=== PATIENT | male | born 1985 | race Caucasian/White ===

== ENCOUNTER 2016-04-24 08:34 | Emergency (ER) ==
--- NOTE | 2016-04-24 09:15 | PROVIDER DOCUMENTATION ---
[id number] Abuse/Overdose - General Chief Complaint: Req. Detox Stated Complaint: GENERAL Time Seen by Provider: 04/24/16 09:09 Source: patient Allergies/Adverse Reactions: Allergies Allergy/AdvReac Type Severity Reaction Status Date / Time No Known Allergies Allergy Verified 03/30/12 12:10 Home Medications: Buprenorphine S.l. [Subutex] 8 mg SL BID 04/24/16 - History of Present Illness-Drug/Alcohol Nature of Presenting Problem: Pt is 30 y/o M presents to the ED with request of detox for drug abuse. Pt denies F. Pt states last drug use was today just PATTERN CHANGER. Pt denies SI or HI. Pt states he does hear his dad voice in his head telling his to get clean. Pt states IV drug use This episode of drinking or use began:: just prior to arrival Severity: reports: mild Situational problems related to:: reports: significant other, work Psychiatric Complaints: reports: hallucinating (voices of dad). denies: angry, agitated, altered mental status, anxiety, confused, depressed, frustrated, hostile, homicidal thoughts, impaired concentration, ingestion, injury, insomnia , irritability, paranoid, , rapid pulse, restlessness, suicidal ideation , tremor Associated Symptoms: reports: denies symptoms Any injuries associated with this episode of intoxication?: No Similar Symptoms Previously?: Yes Recently seen or treated by another doctor?: No Review of Systems - Adult - REVIEW OF SYSTEMS - ADULT Constitutional: denies: chills, fever Eyes: denies: blurred vision, double vision Ears, Nose, Mouth & Throat: denies: ear pain, nose pain, throat pain Cardiovascular: reports: irregular heart rate (tachy). denies: chest pain, heart murmur Respiratory: denies: cough, shortness of breath, wheezing Gastrointestinal: denies: abdominal pain, diarrhea, nausea, vomiting Genitourinary: denies: dysuria, hematuria Musculoskeletal: denies: bone pain, joint pain, neck pain Integumentary: denies: hives, itching Neurological: denies: dizziness/vertigo, headache/migraines Psychiatric: reports: no symptoms reported Endocrine: reports: no symptoms reported Hematologic/Lymphatic: reports: no symptoms reported Allergic/Immunologic: reports: no symptoms reported All Other Systems: Reviewed and Negative Past History - Adult - PAST MEDICAL HISTORY-ADULT Review of Records: reports: Nursing Assessment Review, Medications Reviewed, Social history reviewed & non-contributory. Major Childhood Illnesses: reports: denies history Cardiovascular: reports: denies history Respiratory: reports: denies history Gastrointestinal: reports: denies history Obstetrical/Gynecological: reports: denies history Genitourinary: reports: denies history Musculoskeletal: reports: denies history Neurological: reports: denies history Endocrine/Immune: reports: denies history Other Conditions: reports: denies history - PRIOR SURGERIES/PROCEDURES Surgical/Procedure History: reports: reviewed, not pertinent - IMMUNIZATION STATUS Childhood Immunizations: See Nurse Assessment Flu Vaccine: See Nurse Assessment - FAMILY HISTORY Family History: reviewed, not pertinent - SOCIAL HISTORY Smoking: cigarettes, greater than 1 pack/day Provider spent 3-5 mins advising pt. on dangers of tobacco.: Discussed manners to quit use, and f/u contacts for add'l counseling. Substance Use: none presently/history of abuse, opiates Living Situation: family Physical Exam-General - PHYSICAL EXAM-ADULT Initial Vital Signs Reviewed: Yes - CONSTITUTIONAL General Appearance: appears well, alert, no apparent distress - EYES Eyes: PERRL/EOMI, pink conjunctivae - HEAD, EARS, NOSE, MOUTH & THROAT HENMT: normocephalic/atraumatic, moist mucous membranes, normal ENT inspection - NECK Neck: non-tender, full range of motion, supple, normal inspection - RESPIRATORY Respiratory: chest non-tender, lungs clear, normal breath sounds - CARDIOVASCULAR Cardiovascular: normal peripheral pulses, no edema, tachycardia - GASTROINTESTINAL (ABDOMEN) Abdominal Exam: normal bowel sounds, non tender, soft - LYMPHATIC Lymphatic: no adenopathy - MUSCULOSKELETAL Back Exam: normal inspection, no CVA tenderness, no vertebral tenderness Extremity: normal range of motion, non-tender, normal gait - SKIN Integumentary: normal color, normal turgor, warm/dry, other (puncture wounds in bilateral sides of neck due to IV use) - NEUROLOGIC Neurologic: chief scientific officer II-XII nml as tested, grossly normal, no motor/sensory deficits - PSYCHIATRIC Psych/Mental Status: normal mood/affect, normal thought content, normal thought process, oriented x 3 Progress - PLAN OF CARE/RESULTS Progress/Plan/Lab Results: Orders Category Date Time Status Regular Diet Diet 04/24/16 09:22 Active ALCOHOL BLOOD Stat Lab 04/24/16 09:10 Uncollected CBC WITH ELECTRONIC DIFF [HEME] Stat Lab 04/24/16 09:10 Uncollected COMPREHENSIVE METABOLIC PANEL [CHEM] Stat Lab 04/24/16 09:10 Uncollected FREE T4 Stat Lab 04/24/16 09:10 Uncollected TSH Stat Lab 04/24/16 09:10 Uncollected URINALYSIS W/POSS RFLX CULT [URINALYSIS] Stat Lab 04/24/16 09:10 Uncollected URINE DRUG SCREEN Stat Lab 04/24/16 09:10 Uncollected VITAMIN B12 Stat Lab 04/24/16 09:10 Uncollected Vital Signs - 24 hr 04/24/16 08:37 Temperature 98.7 F Pulse Rate 120 H Respiratory 20 Rate Blood Pressure 153/91 O2 Sat by Pulse 100 Oximetry Laboratory Tests 04/24/16 04/24/16 04/24/16 09:40 09:40 09:40 WBC 6.59 RBC 4.63 L Hgb 13.6 L Hct 39.7 L MCV 85.7 MCH 29.4 MCHC 34.3 RDW Std Deviation 13.2 Plt Count 283 MPV 9.8 Immature Gran % (Auto) 0.0 Neut % (Auto) 63.8 Lymph % (Auto) 29.0 [place] % (Auto) 6.1 Eos % (Auto) 0.8 Baso % (Auto) 0.3 Immature Gran # (Auto) 0.00 Neut # (Auto) 4.21 Lymph # (Auto) 1.91 [place] # (Auto) 0.40 Eos # (Auto) 0.05 Baso # (Auto) 0.02 Sodium 139 Potassium 3.9 Chloride 99 Carbon Dioxide 27 Anion Gap 13 BUN 9 Creatinine 0.9 Estimated GFR/1.73 m2 > 60 BUN/Creatinine Ratio 10 Glucose 124 H Calculated Osmolality 278 Calcium 9.0 Total Bilirubin 0.12 L AST 35 H ALT 43 Alkaline Phosphatase 70 Total Protein 6.4 Albumin 4.0 Globulin 2.4 Albumin/Globulin Ratio 1.7 Vitamin B12 TSH Free T4 Urine Source Urine Color Urine Turbidity Urine pH Ur Specific [place] Urine Protein Ur Glucose (Stick) Ur Ketones (Stick) Urine Blood Urine Nitrite Urine Bilirubin Urobilinogen Dipstick Urine Leukocytes Urine WBC (Auto) Urine RBC (Auto) U Epithel Cells (Auto) Urine Bacteria (Auto) Plasma/Serum Ethyl Alc 04/24/16 04/24/16 09:40 10:28 WBC RBC Hgb Hct MCV MCH MCHC RDW Std Deviation Plt Count MPV Immature Gran % (Auto) Neut % (Auto) Lymph % (Auto) [place] % (Auto) Eos % (Auto) Baso % (Auto) Immature Gran # (Auto) Neut # (Auto) Lymph # (Auto) [place] # (Auto) Eos # (Auto) Baso # (Auto) Sodium Potassium Chloride Carbon Dioxide Anion Gap BUN Creatinine Estimated GFR/1.73 m2 BUN/Creatinine Ratio Glucose Calculated Osmolality Calcium Total Bilirubin AST ALT Alkaline Phosphatase Total Protein Albumin Globulin Albumin/Globulin Ratio Vitamin B12 580 TSH 1.02 Free T4 1.02 Urine Source CLEAN CATCH Urine Color YELLOW Urine Turbidity CLEAR Urine pH 7.0 Ur Specific [place] 1.017 Urine Protein TRACE A Ur Glucose (Stick) NEGATIVE Ur Ketones (Stick) NEGATIVE Urine Blood NEGATIVE Urine Nitrite NEGATIVE Urine Bilirubin NEGATIVE Urobilinogen Dipstick NORMAL Urine Leukocytes NEGATIVE Urine WBC (Auto) <10 Urine RBC (Auto) <10 U Epithel Cells (Auto) <10 Urine Bacteria (Auto) NEGATIVE Plasma/Serum Ethyl Alc - REASSESSMENT Reassessment #1 Time Reassessed: 11:39 (Dr. Peterson at bedside ) Status: unchanged (Dr. Peterson informed Pt about outpatient clinics for substance abuse and Pt states he understand and will follow up.) Departure - Departure Time of Disposition Order: 11:38 DIAGNOSIS: Substance abuse Disposition: HOME 01 Certified Medical Emergency: Emergent Condition: Stable Additional Instructions: Follow up with outpatient facility. ED Follow Up Instructions: You have been treated by a care provider in the Emergency Department. These instructions are being provided to you so you can have an understanding of how to care for yourself upon discharge. Upon discharge from the Emergency Department, you are responsible for making arrangements for follow-up care by a physician of your choice. Take all prescribed medications as directed. Return to the Emergency Department immediately for any new or worsening symptoms. You may call the Physician Referral phone number at [phone] to obtain a list of Physicians who are taking new patients. Referrals: None,PCP [Primary Care Provider] - Attestation - Scribe Verification/Attestation Scribe:: Radha Arias Acting as Scribe for:: Omega Peterson Scribe documention review:: This chart was documented by a scribe and accurately reflects the service the provider performed and the decisions made by the provider.
[2016-04-24 09:49] LABS: MANUAL DIFF NEEDED? NO
[2016-04-24 09:58] LABS: BASO% 0.3 % (0.0-0.8); EOS# 0.05 X1000 (0.0-0.7); EOS% 0.8 % (0.0-10.0); HEMATOCRIT 39.7 % (42.0-52.0); HEMOGLOBIN 13.6 g/dL (14.0-18.0); LYMPH# 1.91 X1000 (1.2-3.4); MCH 29.4 PG (27-31); MCHC 34.3 g/dL (33-37); MCV 85.7 FL (81-99); MONO% 6.1 % (1.7-9.3); MPV 9.8 FL (7.4-10.4); NEUT% 63.8 % (42.2-75.2); PLT 283 X1000 (130-400); RBC 4.63 XMIL (4.7-6.1)
[2016-04-24 10:29] LABS: AGAP 13; ALKALINE PHOSPHATASE 70 U/L (32-122); BUN 9 mg/dL (8-22); CHLORIDE 99 mmol/L (98-107); COSMO 278; GOT 35 U/L (10-34); GPT 43 U/L (10-44); POTASSIUM 3.9 mmol/L (3.5-5.1); SODIUM 139 mmol/L (136-145); TCO2 27 mmol/L (25-35); TOTAL BILIRUBIN 0.12 mg/dL (0.20-1.00); TOTAL PROTEIN 6.4 g/dL (6.3-8.3)
[2016-04-24 10:34] LABS: URINE CULTURE NEEDED? NO; URINE MICRO REVIEW NEEDED? NO; URINE SOURCE CLEAN CATCH
[2016-04-24 10:40] LABS: BILIRUBIN URINE NEGATIVE (NEGATIVE); BLOOD URINE NEGATIVE (NEGATIVE); COLOR YELLOW; GLUCOSE URINE NEGATIVE (NEGATIVE); LEUKOCYTES URINE NEGATIVE (NEGATIVE); NITRITE URINE NEGATIVE (NEGATIVE); PROTEIN URINE TRACE mg/dL (NEGATIVE); SP GRAVITY URINE 1.017; TURBIDITY URINE CLEAR (CLEAR); UROBILINOGEN URINE NORMAL (NORMAL)
[2016-04-24 10:42] LABS: UR EPITHELIAL CELLS <10 /HPF (<10); URINE BACTERIA NEGATIVE /HPF; URINE RBC <10 /HPF (<10); URINE WBC <10 /HPF (<10)
[2016-04-24 10:45] LABS: FREE T4 1.02 ng/dL (0.93-1.70)
[2016-04-24 12:03] LABS: UR AMPHETAMINES QUAL PRESUMPTIVE POSITIVE (NONE DETECT); UR BARBITUATES QUAL NONE DETECTED (NONE DETECT); UR BENZODIAZEPIN QUAL PRESUMPTIVE POSITIVE (NONE DETECT); UR CANNABINOIDS QUAL NONE DETECTED (NONE DETECT); UR COCAINE QUAL NONE DETECTED (NONE DETECT); UR METHADONE QUAL NONE DETECTED (NONE DETECT); UR OPIATES QUAL NONE DETECTED (NONE DETECT); UR OXYCODONE QUAL NONE DETECTED (NONE DETECT); UR PCP QUAL NONE DETECTED (NONE DETECT)
[2016-04-24 12:14] VITALS: BP 147/87
== END 2016-04-24 12:13 | disposition home or self-care (01) ==
LOC: ED 08:34
DX: F19.10 Other psychoactive substance abuse, uncomplicated (principal); S11.83XA Puncture wound without foreign body of other specified part of neck, initial encounter; R00.0 Tachycardia, unspecified; F17.210 Nicotine dependence, cigarettes, uncomplicated; Z79.899 Other long term (current) drug therapy; Z71.6 Tobacco abuse counseling
CPT/HCPCS: 36415; 80053; 81001; 82607; 84439; 84443; 85025; 99283; G0480